=== PATIENT | male | born 1985 | race Two or more races ===

== ENCOUNTER 2020-08-24 18:24 | Emergency (ER) | payer OTHER | END 2020-08-24 23:48 | disposition home or self-care (01) | LOC: FER 18:24 | DX: S61.211A Laceration without foreign body of left index finger without damage to nail, initial encounter (principal); S61.213A Laceration without foreign body of left middle finger without damage to nail, initial encounter; S61.215A Laceration without foreign body of left ring finger without damage to nail, initial encounter; Z23 Encounter for immunization; W29.8XXA Contact with other powered hand tools and household machinery, initial encounter | CPT/HCPCS: 73130; 90471; 90715 ==